=== PATIENT | male | born 1995 | race Hispanic/Latino ===

== ENCOUNTER 2019-10-22 19:44 | Emergency (ER) | payer SELFPAY ==
[2019-10-22] MEDS ORDERED: LIDOCAINE 1% 20 ML MDV ONE (21:29)
--- NOTE | 2019-10-22 21:58 | RAD REPORT ---
EXAM DESCRIPTION: RAD - Hand Right 2 View - 10/22/2019 9:44 pm CLINICAL HISTORY: PAIN COMPARISON: No comparisons FINDINGS: Soft tissue swelling affects the second finger. No radiopaque foreign body or fracture.
--- NOTE | 2019-10-22 22:09 | EDPHYS ---
Physician Documentation [facility] Name: Zay Hudson Age: 24 yrs Sex: Male : 1995 Arrival Date: 10/22/2019 Time: 19:45 Bed 8 Private MD: ED Physician Sukhdev Diggs HPI: 10/21 21:20 This 24 yrs old Male presents to ER via Ambulatory with complaints of Splinter cp in Finger. 21:20 The patient or guardian reports a puncture wound, wooden splinter. cp 21:20 The complaints affect the dorsal side middle phalanx left index finger. Context: cp resulted from working. Onset: The symptoms/episode began/occurred yesterday. Associated signs and symptoms: Pertinent negatives: cyanosis distally, decreased sensation distally, drainage from wound. Historical: - Allergies: 20:34 No Known Allergies; ca1 - Home Meds: 20:34 None [Active]; ca1 - PMHx: 20:34 None; ca1 - PSHx: 20:34 None; ca1 - Immunization history:: Adult Immunizations up to date, Last tetanus immunization: unknown. - Social history:: Smoking status: Patient denies any tobacco usage or history of. ROS: 21:25 Constitutional: Negative for body aches, chills, fever. cp 21:25 Skin: Positive for puncture, of the dorsal side middle phalanx right index finger. 21:25 Neuro: Negative for numbness, tingling. 21:25 All other systems are negative. Exam: 21:33 Constitutional: The patient appears in no acute distress, alert, awake, non-toxic, well cp developed, well nourished. 21:33 Musculoskeletal/extremity: Extremities: grossly normal except: ROM: full active range cp of motion, in the left index finger, Perfusion: the extremity is normally perfused throughout, Sensation intact. Tendon exam: specific tendon testing normal through active and passive range of motion 21:33 Skin: injury, that can be described as without bleeding, palpable foreign body noted lateral middle phalanx left index finger, minimal swelling and erythema noted, puncture(s), that are deep, of the dorsal side middle phalanx left index finger. Vital Signs: 20:32 BP 112 / 62; Pulse 62; Resp 16 S; Temp 98.6(TE); Pulse Ox 100% on R/A; Weight 72.57 kg ca1 (R); Height 5 ft. 7 in. (170.18 cm) (R); 22:22 BP 120 / 80; Pulse 65; Resp 18; Temp 98.5; Pulse Ox 100% on R/A; mg2 20:32 Body Mass Index 25.06 (72.57 kg, 170.18 cm) ca1 MDM: 21:12 Patient medically screened. cp 21:30 Differential diagnosis: open fracture, retained foreign body. cp 22:07 Data reviewed: vital signs, nurses notes, radiologic studies, plain films. cp 22:07 Counseling: I had a detailed discussion with the patient and/or guardian regarding: the cp historical points, exam findings, and any diagnostic results supporting the discharge/admit diagnosis, radiology results, to return to the emergency department if symptoms worsen or persist or if there are any questions or concerns that arise at home. Response to treatment: the patient's symptoms have mildly improved after treatment, and as a result, I will discharge patient. 10/21 20:58 Order name: XRAY Hand RIGHT 2 View; Complete Time: 22:00 ea 10/21 22:00 Interpretation: Report reviewed. 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 Exp: ea 06/10/2021. Lot #: [id number]. } Route: IM; Site: right deltoid; 22:20 Follow up: Response: No adverse reaction; Medication administered at discharge. mg2 Disposition: 22:25 Chart complete. cp Disposition: 10/22/19 22:08 Discharged to Home. Impression: Puncture wound with foreign body of right index finger without damage to nail. - Condition is Stable. - Discharge Instructions: Puncture Wound. - Prescriptions for Ibuprofen 800 mg Oral Tablet - take 1 tablet by ORAL route every 8 hours As needed take with food; 30 tablet. Doxycycline Hyclate 100 mg Oral Tablet - take 1 tablet by ORAL route every 12 hours; 20 tablet. - Medication Reconciliation Form, Thank You Letter, Antibiotic Education, Prescription Opioid Use form. - Follow up: Russell Moser MD; When: 2 - 3 days; Reason: Wound Recheck, Worsening of condition. - Problem is new. - Symptoms have improved. Addendum: 10/24/2019 03:12 Co-signature as Attending Physician, Sukhdev Diggs MD. m a2 Signatures: Dispatcher [employer] EDMS Cory George PA PA cp Antunez, Elena, RN RN Sukhdev Wheeler MD MD ma2 Daniel Kaiser, RN RN mg2 Kimmie Garces RN RN ca1 Corrections: (The following items were deleted from the chart) 10/21 22:23 22:08 10/22/2019 22:08 Discharged to Home. Impression: Puncture wound with foreign body mg2 of right index finger without damage to nail. Condition is Stable. Forms are Medication Reconciliation Form, Thank You Letter, Antibiotic Education, Prescription Opioid Use. Follow up: Russell Moser; When: 2 - 3 days; Reason: Wound Recheck, Worsening of condition. Problem is new. Symptoms have improved. cp 10/22 21:48 10/21 21:00 Skin: Positive for puncture, of the dorsal side middle phalanx right index cp finger, cp 10/22 21:48 10/21 21:00 Constitutional: Negative for body aches, chills, fever, cp cp 10/22 21:48 10/21 21:00 Neuro: Negative for numbness, tingling, cp cp 10/22 21:48 10/21 21:00 All other systems are negative, cp cp
--- NOTE | 2019-10-22 22:09 | ER ---
Nurse's Notes [facility] Name: Zay Hudson Age: 24 yrs Sex: Male : 1995 Arrival Date: 10/22/2019 Time: 19:45 Bed 8 Private MD: Diagnosis: Puncture wound with foreign body of right index finger without damage to nail Presentation: 10/21 20:32 Chief complaint: Patient states: Wood splinter on the 2nd digit of R hand. Happened ca1 yesterday, now it's swollen, red and hurts a little. Coronavirus screen: Proceed with normal triage. Patient denies a cough. Patient denies shortness of breath or difficulty breathing. Patient denies measured and/or subjective temperature greater than 100.4F prior to today's visit. Patient denies travel on a cruise ship or to a country the [facility] currently lists as an affected area. Patient denies contact with known and/or suspected case of COVID-19. Ebola Screen: Patient negative for fever greater than or equal to 101.5 degrees Fahrenheit, and additional compatible Ebola Virus Disease symptoms Patient denies exposure to infectious person. Patient denies travel to an Ebola-affected area in the 21 days before illness onset. No symptoms or risks identified at this time. Initial Sepsis Screen: Does the patient meet any 2 criteria? No. Patient's initial sepsis screen is negative. Does the patient have a suspected source of infection? No. Patient's initial sepsis screen is negative. Risk Assessment: Do you want to hurt yourself or someone else? Patient reports no desire to harm self or others. Onset of symptoms was October 22, 2019. 20:32 Method Of Arrival: Ambulatory ca1 20:32 Acuity: TAHMINA 4 ca1 Historical: - Allergies: 20:34 No Known Allergies; ca1 - Home Meds: 20:34 None [Active]; ca1 - PMHx: 20:34 None; ca1 - PSHx: 20:34 None; ca1 - Immunization history:: Adult Immunizations up to date, Last tetanus immunization: unknown. - Social history:: Smoking status: Patient denies any tobacco usage or history of. Screenin:56 Abuse screen: Denies threats or abuse. Nutritional screening: No deficits noted. ea Tuberculosis screening: No symptoms or risk factors identified. Fall Risk None identified. Assessment: 20:58 General: Appears in no apparent distress. comfortable, Behavior is calm, cooperative. mg2 Pain: Complains of pain in right index finger. Neuro: Level of Consciousness is awake, alert, obeys commands, Oriented to person, place, time, situation. Cardiovascular: Capillary refill < 3 seconds Patient's skin is warm and dry. Respiratory: Airway is patent Respiratory effort is even, unlabored, Respiratory pattern is regular, symmetrical. GI: No signs and/or symptoms were reported involving the gastrointestinal system. : No signs and/or symptoms were reported regarding the genitourinary system. EENT: No signs and/or symptoms were reported regarding the EENT system. Derm: Skin is pink, warm \T\ dry. normal. Musculoskeletal: Circulation, motion, and sensation intact. Capillary refill < 3 seconds, Swelling present in right index finger. Injury Description: Foreign body is located right index finger is a splinter. was sustained 1 day ago. 22:22 Reassessment: Patient appears in no apparent distress at this time. mg2 Vital Signs: 20:32 BP 112 / 62; Pulse 62; Resp 16 S; Temp 98.6(TE); Pulse Ox 100% on R/A; Weight 72.57 kg ca1 (R); Height 5 ft. 7 in. (170.18 cm) (R); 22:22 BP 120 / 80; Pulse 65; Resp 18; Temp 98.5; Pulse Ox 100% on R/A; mg2 20:32 Body Mass Index 25.06 (72.57 kg, 170.18 cm) ca1 ED Course: 19:45 Patient arrived in ED. ds1 20:34 Triage completed. ca1 20:34 Arm band placed on right wrist. ca1 20:56 Daniel Kaiser, RN is Primary Nurse. mg2 20:58 Cory George PA is PHCP. cp 20:58 Sukhdev Diggs MD is Attending Physician. cp 20:59 Patient has correct armband on for positive identification. mg2 21:44 XRAY Hand RIGHT 2 View In Process Unspecified. EDMS 21:45 Assist provider with foreign body removal of a splinter from right index finger Set up ea for procedure. Performed by Cory BINGHAM Patient tolerated well. 22:07 Russell Moser MD is Referral Physician. cp 22:22 Patient did not have IV access during this emergency room visit. 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 Exp: ea 06/10/2021. Lot #: [id number]. } Route: IM; Site: right deltoid; 22:20 Follow up: Response: No adverse reaction; Medication administered at discharge. mg2 Outcome: 22:08 Discharge ordered by . kelly 22:22 Discharged to home ambulatory, with family. mg2 22:22 Condition: stable 22:22 Discharge instructions given to patient, family, Instructed on discharge instructions, follow up and referral plans. medication usage, wound care, Demonstrated understanding of instructions, follow-up care, medications, wound care, Prescriptions given X 1. 22:23 Patient left the ED. mg2 Signatures: Dispatcher [employer] [facility] Noemy Ward ds1 Cory George PA PA cp Antunez, Elena, RN RN ea [place], Michele, RN RN mg2 Kimmie Garces RN RN ca1
[2019-10-22] MEDS ORDERED: TETANUS & DIPHTHERIA TOX,ADULT 0.5 ML VIAL ONE (22:15)
[2019-10-22 22:34] VITALS: O2SAT 100
[2019-10-22 22:35] VITALS: BP 120/80; TEMP 98.5
== END 2019-10-22 22:23 | disposition home or self-care (01) ==
LOC: ER 19:44
DX: S61.240A Puncture wound with foreign body of right index finger without damage to nail, initial encounter (principal); Z23 Encounter for immunization
CPT/HCPCS: 90471; 90714; 99284